=== PATIENT | female | born 2000 | race Caucasian/White ===

== ENCOUNTER 2024-10-29 08:51 | Day surgery (SDC) | payer OTHER ==
[~2024-10-29] VITALS: Ht 162.6 cm; Wt 134.8 kg
[~2024-10-29 08:51] MED LIST: NS 500 ML IV ONE
[2024-10-29] MEDS ORDERED: ZOLOFT10013 PO (09:46)
[2024-10-29] MEDS ORDERED: LISI20 PO (09:47)
[2024-10-29] MEDS ORDERED: NS 500 ML IV ONE (09:50)
--- NOTE | 2024-10-29 10:02 | NUR ---
10/29/[address] [place], [place] [id number]: TIMEOUT AND PRE-OP INJECTION BY DR GARCIA OF 4 CC OF MIX OF 9 CC LIDOCAINE 1% WITH EPI 1:100,000 WITH 1 CC SODIUM BICARB
[2024-10-29] MEDS ORDERED: propofoL 20 ML IV ONE (10:09)
[2024-10-29] MEDS ORDERED: FentaNYL Citrate 50 MCG/ML 2 ML Injection ONE (10:10)
[2024-10-29] MEDS ORDERED: Midazolam HCl 1MG / ML 2ML Vial ONE (10:10)
[2024-10-29] MEDS ORDERED: Dexamethasone Sod Phos 10 MG/ML 1ML VIAL ONE (10:46)
[2024-10-29] MEDS ORDERED: Ondansetron HCl 2 MG / ML 2ML Vial ONE (10:46)
--- NOTE | 2024-10-29 10:55 | NUR ---
10/29/24 1055 Crystal Nicole PT TO PACU AWAKE AND ANSWERING QUESTIONS. VSS. PT DENIES PAIN AND NAUSEA AT THIS TIME. 2 LIP RINGS ARE TAPED ON AND INTACT FROM OR.
[2024-10-29 10:56] VITALS: BP 132/61
== END 2024-10-29 11:33 | disposition home or self-care (01) ==
LOC: ORSCSDS 08:51
PROVIDERS: Orthopaedic Surgery
PROC: 0LB70ZZ Excision of Right Hand Tendon, Open Approach (ICD-10-PCS; principal; 2024-10-29 10:15)
DX: R22.31 Localized swelling, mass and lump, right upper limb (principal); M67.441 Ganglion, right hand; I10 Essential (primary) hypertension; F41.9 Anxiety disorder, unspecified; F32.A Depression, unspecified; Z79.899 Other long term (current) drug therapy
CPT/HCPCS: 88304; J1100; J2250; J2405; J2704; J3010; J7040

== ENCOUNTER 2025-01-19 20:12 | Emergency (ER) | payer OTHER ==
[~2025-01-19] VITALS: Ht 162.6 cm; Wt 136.1 kg
[~2025-01-19 20:12] MED LIST changes: +LISI20 PO; -NS 500 ML IV ONE; +ZOLOFT10013 PO
[2025-01-19 21:13] VITALS: BP 158/111
== END 2025-01-19 23:37 | disposition left against medical advice (07) ==
LOC: ER 20:12
DX: S61.212A Laceration without foreign body of right middle finger without damage to nail, initial encounter (principal); Z53.21 Procedure and treatment not carried out due to patient leaving prior to being seen by health care provider; W29.0XXA Contact with powered kitchen appliance, initial encounter
CPT/HCPCS: 99281